=== PATIENT | male | born 1985 | race Caucasian/White ===

== ENCOUNTER 2023-01-16 12:34 | Emergency (ER) | payer MEDICAID, SELFPAY ==
[2023-01-16 12:36] VITALS: BP 129/77; PULSE 104; RESP 18; TEMP 36.3; O2SAT 97; BMI 28.0
--- NOTE | 2023-01-16 13:27 | EDS_ITS ---
HPI History of Present Illness Chief Complaint: Edema Narrative Narrative: 37-year-old male presenting for evaluation of lower extremity edema. He states he has had this for about a week. Patient states that he used to be on Suboxone for chronic pain and he also admits to doing methamphetamine but states he has not done Suboxone for about 2 months and has not done methamphetamine for about a month. Patient notes that he had some weight gain since then. Patient was seen at [facility] yesterday and had blood work and a chest x-ray which was normal. Apparently he was having some wheezing yesterday and was given breathing treatments. Patient denies feel like he is wheezing today. He is not having chest pain or shortness of breath. No fevers or chills. He states that his psychiatrist saw pictures of his legs and told him that he had anasarca. Patient does not have any edema anywhere else. He had a negative chest x-ray yesterday for pneumonia, CHF, other acute processes. Patient states he does not really have any other medical problems that he is diagnosed with although he does believe he has sleep apnea because he is oxygen drops when he sleeps. He also states that he has been sleepwalking more frequently since he started to get Sublimaze by the [facility]. He states that he has woken up outside in the past and that the sleepwalking is not new although its more frequent. Denies doing drugs or alcohol. [facility] Medical History (Updated 01/16/23 @ 12:56 by Ronald Ta) Chronic back pain Edema Home Medications subucade 01/16/23 [History Last Taken Unknown] Allergy/AdvReac Type Severity Reaction Status Date / Time No Known Allergies Allergy Verified 01/16/23 15:04 Social History Smoking Status: Current every day smoker tobacco type: cigarettes EXAM Physical Exam Const Vital Signs: 01/16/23 12:36 01/16/23 12:55 01/16/23 15:03 Temperature 97.4 F L Temperature Source Temporal Pulse Rate 104 H 83 Respiratory Rate 18 13 Respiratory Effort Normal Respiratory Pattern Normal Blood Pressure 129/77 H Blood Pressure Mean 94 Pulse Ox 97 93 Oxygen Delivery Method Room Air Room Air MDM MDM MDM Narrative Medical decision making narrative: For evaluation of lower extremity edema. This does not appear to be pitting edema. He had venous duplexes of the bilateral lower extremities yesterday which were negative. Patient has a history of bipolar disorder and is on Seroquel and he does have intermittent confusion is describing some intermittent delusions and formication which are not new. He also states that he believes he has sleep apnea as when he falls asleep at night he is told his oxygen is dropping and he is getting up and sleepwalking at night and will wake up and places like the yard or in another room. He states his mother is seen him walking around and he believes last night he was making a peanut butter and jelly sandwich while he was sleepwalking. Patient had a normal CT brain yesterday at [place]. His hemoglobin was 10.3, hematocrit 32.3, platelets 214. CMP was within normal limits. Amylase was 34. High-sensitivity troponin was less than 0.05. White blood cell count was 5.59. Had a chest x-ray which was negative yesterday. He was discharged to follow-up with a psychiatrist and via photo he showed her exam she told him that he has anasarca due to his weight gain. Patient tells me that he has quit doing fentanyl about 2 months ago and meth about a month ago and I think this is likely the cause of his weight gain as he is eating more normally and states he only ate once a day typically when he was doing meth. I did obtain thyroid studies returned obtained yesterday. TSH is normal at 2.31, T3 is 2.9 which is normal. Free T4 was slightly low at 0.63 although not sure what the clinical relevance is. Judgment positive for cannabinoids. EtOH negative. Given that he had 2 work-ups in 24 hours which are both normal I believe he is safe to follow-up with a psychiatrist. I counseled him that he does not have anasarca and for his mild swelling he can wear compression stockings at home. Impression: 1. Hallucinations 2. Formication 3. History of methamphetamine abuse 4. Low T4 Lab Data Attestation: I reviewed the patient's lab results. Labs: Laboratory Results - last 24 hr 01/16/23 01/16/23 01/16/23 13:13 13:35 13:37 TSH 2.31 Free T4 0.63 L Free T3 pg/dL 2.9 Urine Opiates Screen NEGATIVE Urine Methadone Screen NEGATIVE Ur Barbiturates Screen NEGATIVE Ur Phencyclidine Scrn NEGATIVE Ur Amphetamines Screen NEGATIVE MDMA (Ecstasy) Screen NEGATIVE U Benzodiazepines Scrn NEGATIVE Urine Cocaine Screen NEGATIVE U Cannabinoids Screen POSITIVE H Ur Drug Screen Comment Ethyl Alcohol < 3.0 Discharge Plan Triage Chief Complaint: Edema Other Complaint: Mental Health ED Provider: Paul Herrera Dx/Rx/DC Orders Instructions: ED Peripheral Edema, Bilateral, ED Hypothyroidism Prescriptions: No Action subucade Primary Care Provider: Care Physician,No Primary Referrals: [facility] [Outside] - 3-5 Days James Bentley MD [Med Staff - Courtesy Staff] - 3-5 Days Care Physician,No Primary [Primary Care Provider] - Disposition Disposition: Home, Self Care
[2023-01-16 14:02] LABS: Alcohol, Blood (Medical)-Serum < 3.0 mg/dL
[2023-01-16 14:02] LABS: Free T3 2.9 pg/mL (2.18-3.98); T4 Free Direct 0.63 ng/dL (0.76-1.46); Thyroid Stim Hormone (TSH) 2.31 uIU/mL (0.358-3.74)
[2023-01-16 14:03] LABS: Amphetamine Urine VISTA NEGATIVE (<1000 ng/mL); Barbiturate Urine VISTA NEGATIVE (< 200 ng/mL); Benzodiazepine Urine VISTA NEGATIVE (< 200 ng/mL); Cocaine Urine VISTA NEGATIVE (< 300 ng/mL); Ecstacy Urine VISTA NEGATIVE (< 500 ng/mL); Methadone Urine VISTA NEGATIVE (< 300 ng/mL); PCP Urine VISTA NEGATIVE (< 25 ng/mL); THC Urine VISTA POSITIVE (< 50 ng/mL); Vista UDS pH Range 5
[2023-01-16 15:03] VITALS: PULSE 83; RESP 13; O2SAT 93
== END 2023-01-16 15:16 | disposition home or self-care (01) ==
PROVIDERS: Emergency Provider Student in an Organized Health Care Education/Training Program; Visit Provider Student in an Organized Health Care Education/Training Program
DX: R44.3 Hallucinations, unspecified (principal); F31.9 Bipolar disorder, unspecified; R20.2 Paresthesia of skin; F17.210 Nicotine dependence, cigarettes, uncomplicated; Z79.899 Other long term (current) drug therapy; Z87.898 Personal history of other specified conditions
CPT/HCPCS: 80307; 82077; 84439; 84443; 84481; 99283; A4216